=== PATIENT | male | born 1980 | race Hispanic/Latino ===

== ENCOUNTER 2018-07-17 08:43 | Day surgery (SDC) | payer OTHER ==
[2018-07-16 13:14] LABS: BASOPHILS % (AUTO) 0.8 % (0.0-5.0); EOSINOPHILS % (AUTO) 4.4 % (0.0-8.0); HEMATOCRIT 46.4 % (42-54); LYMPHOCYTES % (AUTO) 25.5 % (21.0-51.0); MEAN CORPUSCULAR HEMOGLOBIN 29.1 pg (27.0-33.0); MEAN CORPUSCULAR HGB CONC 32.9 g/dL (32.0-36.0); MEAN CORPUSCULAR VOLUME 88.4 fL (79-99); MONOCYTES % (AUTO) 10.4 % (3.0-13.0); NEUTROPHILS % (AUTO) 58.9 % (40.0-77.0); NUCLEATED RED BLOOD CELLS 0.1 % (0.0-0.19); PLATELET COUNT (AUTO) 222 K/uL (130-400); RED BLOOD CELL COUNT(AUTO) 5.25 MIL/uL (4.50-6.20); RED CELL DISTRIBUTION WIDTH 13.3 % (11.0-15.5); WHITE BLOOD COUNT (AUTO) 5.6 K/uL (4.8-10.8)
[2018-07-16 13:20] VITALS: BP 150/86
[2018-07-16 13:21] LABS: CREATININE 0.8 mg/dL (0.5-1.5); POTASSIUM 4.7 mmol/L (3.5-5.1)
[~2018-07-17] VITALS: Ht 188 cm; Wt 134.2 kg
[2018-07-17] VITALS (12 sets, daily range): BP systolic 131–152; BP diastolic 51–87
[~2018-07-17 08:43] MED LIST: AMLO5TAB7 PO; ATOR20TA65 PO; CALC600T12 PO; FLUO20CA30 PO; IBUP-2353 PO
[2018-07-17] MEDS: CEFAZOLIN SODIUM 1 GM VIAL IVP SCH ×2 (09:30→12:53)
[2018-07-17] MEDS ORDERED: LACTATED RINGERS 1000ML 1,000 ML IV ONE (09:37)
--- NOTE | 2018-07-17 09:53 | NUR ---
VALUABLES: CLOTHING, CELL PHONE AND WALLET GIVEN TO - BRENDAN JARAMILLO.
[2018-07-17] MEDS ORDERED: CEFAZOLIN SODIUM 1 GM VIAL ONE (10:22)
[2018-07-17] MEDS ORDERED: LIDOCAINE PF 2% 5ML ABBOJECT ONE (12:32)
[2018-07-17] MEDS ORDERED: PROPOFOL 10 MG/ML 20ML VIAL IV ONE ×2 (12:33→14:36)
[2018-07-17] MEDS ORDERED: ONDANSETRON HCL 4 MG/2 ML VIAL ONE (12:33)
[2018-07-17] MEDS ORDERED: ROCURONIUM 10MG/1ML SYR 10 MG/ML ML ONE ×2 (12:34→13:04)
[2018-07-17] MEDS ORDERED: MIDAZOLAM HCL 1 MG/ML 2ML VIAL ONE (12:34)
[2018-07-17] MEDS ORDERED: FENTANYL CITRATE PF 50 MCG/1 ML 5ML AMP IV ONE ×2 (12:35→14:25)
[2018-07-17] MEDS ORDERED: ROPIVACAINE 0.5% 5MG/ML 30ML IJ ONE (12:36)
[2018-07-17] MEDS ORDERED: KETOROLAC TROMETHAMINE 30MG/ML ONE (12:59)
[2018-07-17] MEDS ORDERED: NEOSTIGMINE 5MG/5ML SYR IV ONE (14:33)
[2018-07-17] MEDS ORDERED: GLYCOPYRROLATE 1 MG/5 ML SYRINGE ONE (14:33)
[2018-07-17] MEDS ORDERED: HYDR-4457 PO (14:38)
[2018-07-17] MEDS ORDERED: CEPH500B PO (14:43)
[2018-07-17] MEDS ORDERED: MEPERIDINE-PF 25 MG/ML SYG ONE (15:20)
--- NOTE | 2018-07-17 16:40 | NUR ---
PATIENT WITH NO DISCOMFORT ,,INSTRUCTIONS GIVEN TO SPOUSE AND PATIENT ,VERBALIZE UNDERSTANDING,,,TO CAR VIA W/C,,,CRUTCHES WERE GIVEN TO PATIENT --STATES KNOWS HOW TO USE,,.
== END 2018-07-17 16:50 | disposition home or self-care (01) ==
LOC: DAH 08:43
PROVIDERS: ATTEND Orthopaedic Surgery
DX: M23.222 Derangement of posterior horn of medial meniscus due to old tear or injury, left knee (principal); M94.262 Chondromalacia, left knee; M23.8X2 Other internal derangements of left knee; I10 Essential (primary) hypertension; F43.10 Post-traumatic stress disorder, unspecified; E78.5 Hyperlipidemia, unspecified; J30.9 Allergic rhinitis, unspecified; Z68.41 Body mass index [BMI] 40.0-44.9, adult; Z79.899 Other long term (current) drug therapy; Z98.890 Other specified postprocedural states; Z82.49 Family history of ischemic heart disease and other diseases of the circulatory system; Z83.3 Family history of diabetes mellitus; K21.9 Gastro-esophageal reflux disease without esophagitis
CPT/HCPCS: 29881; 29888; 36415; 80048; 85025; A4218; A4649 ×4; A4930; A6223; C1713; C1762; C1776; J0690 ×2; J1885; J2001; J2175; J2250; J2405; J2704 ×2; J2710; J2795; J3010 ×2; J3490; J7120 ×2